=== PATIENT | female | born 1965 | race Hispanic/Latino ===

== ENCOUNTER → 2018-12-10 | Outpatient (CLI) | payer BC | END | disposition home or self-care (01) | LOC: RAH 16:17 | PROVIDERS: ATTEND Family Medicine | DX: Z12.31 Encounter for screening mammogram for malignant neoplasm of breast (principal) | CPT/HCPCS: 77067 ==

== ENCOUNTER 2020-11-10 15:20 | Inpatient (IN) | payer BC ==
[~2020-11-10] VITALS: Ht 157.5 cm; Wt 72.0 kg
[~2020-11-10 15:20] MED LIST: 0.9% NACL 50ML 50 ML IV.SOLN. IV SCH
[2020-11-10 15:21] VITALS: BP 157/95
[2020-11-10 16:05] LABS: APPEARANCE,URINE Clear (CLEAR); BILIRUBIN,URINE Negative (NEGATIVE); COLOR,URINE Yellow (YELLOW); GLUCOSE, URINE (UA) Negative (NEGATIVE); KETONES,URINE Negative (NEGATIVE); LEUKOCYTE ESTERASE ,URINE Trace (NEGATIVE); NITRATE,URINE Negative (NEGATIVE); OCCULT BLOOD,URINE Trace (NEGATIVE); PROTEIN,URINE Negative (NEGATIVE)
[2020-11-10 16:24] LABS: BACTERIA,URINE Rare /HPF (None Seen); RBC,URINE None Seen /HPF (0-1); SQUAMOUS EPITHELIAL CELL,UR 0-2 /HPF (0-2); WBC,URINE 0-1 /HPF (0-1)
[2020-11-10 16:26] LABS: BASOPHILS % (AUTO) 0.4 % (0.0-5.0); EOSINOPHILS % (AUTO) 1.4 % (0.0-8.0); HEMATOCRIT 40.4 % (36-48); LYMPHOCYTES % (AUTO) 21.8 % (21.0-51.0); MEAN CORPUSCULAR HEMOGLOBIN 32.2 pg (27.0-33.0); MEAN CORPUSCULAR HGB CONC 33.7 g/dL (32.0-36.0); MEAN CORPUSCULAR VOLUME 95.7 fL (79-99); MONOCYTES % (AUTO) 7.4 % (3.0-13.0); NEUTROPHILS % (AUTO) 68.6 % (40.0-77.0); PLATELET COUNT (AUTO) 185 K/uL (130-400); RED BLOOD CELL COUNT(AUTO) 4.22 MIL/uL (4.00-5.50); RED CELL DISTRIBUTION WIDTH 12.8 % (11.0-15.5); WHITE BLOOD COUNT (AUTO) 7.2 K/uL (4.8-10.8)
[2020-11-10] MEDS ORDERED: NACL 0.9% 1000ML 1,000 ML IV ONE (16:30)
[2020-11-10] MEDS ORDERED: KETOROLAC 15MG/ML VIAL (15MG/ML) IV ONE (16:30)
[2020-11-10 16:37] LABS: CREATININE 0.8 mg/dL (0.5-1.5); POTASSIUM 3.3 mmol/L (3.5-5.1)
[2020-11-10 16:41] LABS: ALBUMIN 3.3 g/dL (3.5-5.0); BILIRUBIN,TOTAL 3.3 mg/dL (0.2-1.0); TOTAL PROTEIN, SERUM 7.9 g/dL (6.0-8.3)
[2020-11-10 17:57] VITALS: BP 135/74
[2020-11-10] MEDS ORDERED: 0.9% NACL 50ML 50 ML IV.SOLN. IV ONE (21:15)
[2020-11-10] MEDS ORDERED: PIP/TAZ ZOSYN 3.375G 3.375 GM VIAL IVPB ONE (21:15)
[2020-11-10] MEDS ORDERED: ZOSYN 3.375GM+NS 50ML 50 ML IV ONE (21:44)
[2020-11-10] MEDS ORDERED: 0.9% NACL 50ML 50 ML IV ONE (21:45)
[2020-11-10] MEDS ORDERED: METRONIDAZOLE 500MG/100ML BAG 100 ML IVPB SCH (22:00)
[2020-11-10] MEDS ORDERED: ACET-66 PO (22:12)
[2020-11-10] MEDS ORDERED: IBUP-2070 PO (22:12)
[2020-11-10 22:17] VITALS: BP 135/79
[2020-11-10] MEDS ORDERED: PIP/TAZ ZOSYN 3.375G 3.375 GM VIAL IVPB SCH (23:00)
[2020-11-10] MEDS: ZOSYN 3.375GM+NS 50ML 50 ML IV SCH (23:15)
[2020-11-10 23:22] LABS: CREATININE 0.7 mg/dL (0.5-1.5); POTASSIUM 3.7 mmol/L (3.5-5.1)
[2020-11-10 23:26] LABS: BILIRUBIN,TOTAL 2.7 mg/dL (0.2-1.0); TOTAL PROTEIN, SERUM 7.2 g/dL (6.0-8.3)
[2020-11-11] VITALS (9 sets, daily range): BP systolic 122–164; BP diastolic 72–89
[2020-11-11] MEDS: NACL 0.9% 1000ML 1,000 ML IV SCH ×3 (00:43→19:51)
[2020-11-11] MEDS ORDERED: METRONIDAZOLE 500MG/100ML BAG 100 ML IVPB SCH (01:45)
[2020-11-11 06:40] LABS: BASOPHILS % (AUTO) 0.5 % (0.0-5.0); EOSINOPHILS % (AUTO) 3.1 % (0.0-8.0); HEMATOCRIT 37.6 % (36-48); MEAN CORPUSCULAR HEMOGLOBIN 31.4 pg (27.0-33.0); MEAN CORPUSCULAR HGB CONC 33.5 g/dL (32.0-36.0); MEAN CORPUSCULAR VOLUME 93.8 fL (79-99); MONOCYTES % (AUTO) 7.9 % (3.0-13.0); NEUTROPHILS % (AUTO) 65.2 % (40.0-77.0); PLATELET COUNT (AUTO) 183 K/uL (130-400); RED BLOOD CELL COUNT(AUTO) 4.01 MIL/uL (4.00-5.50); RED CELL DISTRIBUTION WIDTH 12.7 % (11.0-15.5); WHITE BLOOD COUNT (AUTO) 5.8 K/uL (4.8-10.8)
[2020-11-11 07:01] LABS: ALBUMIN 2.9 g/dL (3.5-5.0); BILIRUBIN,TOTAL 2.2 mg/dL (0.2-1.0); CREATININE 0.7 mg/dL (0.5-1.5); POTASSIUM 3.4 mmol/L (3.5-5.1)
[2020-11-11] MEDS: ZOSYN 3.375GM+NS 50ML 50 ML IV SCH ×2 (07:13→15:34)
[2020-11-11] MEDS ORDERED: MORPHINE 4 MG SYG IVP PRN (08:15)
[2020-11-11 08:50] LABS: BILIRUBIN,DIRECT 0.7 mg/dL (0.0-0.3); BILIRUBIN,TOTAL 2.2 mg/dL (0.2-1.0)
[2020-11-11] MEDS ORDERED: KETOROLAC 30MG VIAL (30MG/ML) IV PRN (15:15)
[2020-11-11] MEDS: ONDANSETRON 4MG INJ IVP PRN (20:49)
[2020-11-12] MEDS: ZOSYN 3.375GM+NS 50ML 50 ML IV SCH ×4 (00:39→23:50)
[2020-11-12] MEDS: TRAMADOL HCL 50 MG TABLET PO PRN (03:51)
[2020-11-12 03:57] VITALS: BP 128/68
[2020-11-12 05:08] LABS: BASOPHILS % (AUTO) 0.8 % (0.0-5.0); EOSINOPHILS % (AUTO) 3.6 % (0.0-8.0); HEMATOCRIT 35.3 % (36-48); LYMPHOCYTES % (AUTO) 28.8 % (21.0-51.0); MEAN CORPUSCULAR HEMOGLOBIN 32.4 pg (27.0-33.0); MEAN CORPUSCULAR HGB CONC 34.3 g/dL (32.0-36.0); MEAN CORPUSCULAR VOLUME 94.6 fL (79-99); MONOCYTES % (AUTO) 8.8 % (3.0-13.0); NEUTROPHILS % (AUTO) 57.8 % (40.0-77.0); PLATELET COUNT (AUTO) 199 K/uL (130-400); RED BLOOD CELL COUNT(AUTO) 3.73 MIL/uL (4.00-5.50); RED CELL DISTRIBUTION WIDTH 12.5 % (11.0-15.5); WHITE BLOOD COUNT (AUTO) 4.8 K/uL (4.8-10.8)
[2020-11-12 05:24] LABS: ALBUMIN 2.8 g/dL (3.5-5.0); BILIRUBIN,TOTAL 1.3 mg/dL (0.2-1.0); CREATININE 0.7 mg/dL (0.5-1.5); POTASSIUM 3.1 mmol/L (3.5-5.1); TOTAL PROTEIN, SERUM 6.9 g/dL (6.0-8.3)
[2020-11-12] MEDS: NACL 0.9% 1000ML 1,000 ML IV SCH (06:21)
[2020-11-12 07:09] VITALS: BP 125/72
[2020-11-12] MEDS: ONDANSETRON 4MG INJ IVP PRN (10:15)
[2020-11-12 10:58] VITALS: BP 132/72
[2020-11-12] MEDS ORDERED: LIDOCAINE HCL-MPF 1% 2ML VIAL IV PRN (11:30)
[2020-11-12] MEDS ORDERED: POTASSIUM CHLORIDE 10% ELIXIR 20 MEQ/15 ML UDCUP PO PRN (11:30)
[2020-11-12] MEDS ORDERED: POTASSIUM CHLORIDE 20MEQ/100ML 100 ML IV PRN (11:30)
[2020-11-12] MEDS ORDERED: FAMOTIDINE 20MG TAB ONE (12:03)
[2020-11-12 16:01] LABS: BILIRUBIN,DIRECT 0.3 mg/dL (0.0-0.3); BILIRUBIN,TOTAL 0.9 mg/dL (0.2-1.0); TOTAL PROTEIN, SERUM 7.4 g/dL (6.0-8.3)
[2020-11-12 16:02] VITALS: BP 150/83
[2020-11-12 20:00] VITALS: BP 160/75
[2020-11-13] VITALS: BP 158/73
[2020-11-13 03:56] VITALS: BP 145/76
[2020-11-13] MEDS: NACL 0.9% 1000ML 1,000 ML IV SCH ×2 (04:20→17:49)
[2020-11-13 04:53] LABS: HEMATOCRIT 36.3 % (36-48); MEAN CORPUSCULAR HEMOGLOBIN 31.3 pg (27.0-33.0); MEAN CORPUSCULAR HGB CONC 34.2 g/dL (32.0-36.0); MEAN CORPUSCULAR VOLUME 91.7 fL (79-99); PLATELET COUNT (AUTO) 249 K/uL (130-400); RED BLOOD CELL COUNT(AUTO) 3.96 MIL/uL (4.00-5.50); RED CELL DISTRIBUTION WIDTH 12.4 % (11.0-15.5); WHITE BLOOD COUNT (AUTO) 5.1 K/uL (4.8-10.8)
[2020-11-13 06:03] LABS: BAND NEUTROPHILS % (MANUAL) 1 % (0-2); BASOPHILS % (MANUAL) 1 % (0-2); EOSINOPHILS % (MANUAL) 3 % (1-6); LYMPHOCYTES % (MANUAL) 27 % (22-44); MAN.DIFF COMMENT-IMPRESSION MANUAL DIFFERENTIAL; MONOCYTES % (MANUAL) 5 % (2-9); PLATELET MORPHOLOGY COMMENT ADEQUATE; REACTIVE LYMPHOCYTES 3 % (0-0); SEGMENTED NEUTROPHILS % 60 % (40-70)
[2020-11-13] MEDS: ZOSYN 3.375GM+NS 50ML 50 ML IV SCH ×3 (06:42→23:34)
[2020-11-13 07:08] VITALS: BP 138/74
[2020-11-13] MEDS: FAMOTIDINE 20MG TAB PO SCH (07:44)
[2020-11-13] MEDS: KCL 20 MEQ ERTAB PO PRN ×2 (10:43→13:02)
[2020-11-13 11:04] VITALS: BP 149/82
[2020-11-13 11:08] LABS: ALBUMIN 2.9 g/dL (3.5-5.0); BILIRUBIN,DIRECT 0.2 mg/dL (0.0-0.3); BILIRUBIN,TOTAL 0.7 mg/dL (0.2-1.0); TOTAL PROTEIN, SERUM 6.8 g/dL (6.0-8.3)
[2020-11-13 15:26] VITALS: BP 150/71
[2020-11-13 19:57] VITALS: BP 149/78
[2020-11-13] MEDS: TRAMADOL HCL 50 MG TABLET PO PRN (21:11)
[2020-11-14 00:06] VITALS: BP 152/78
[2020-11-14 04:00] VITALS: BP 150/79
[2020-11-14] MEDS: NACL 0.9% 1000ML 1,000 ML IV SCH (06:36)
[2020-11-14] MEDS: ZOSYN 3.375GM+NS 50ML 50 ML IV SCH (06:38)
[2020-11-14 07:10] VITALS: BP 143/78
[2020-11-14] MEDS: FAMOTIDINE 20MG TAB PO SCH (08:35)
[2020-11-14 10:46] VITALS: BP 141/94
== END 2020-11-14 11:30 | disposition home or self-care (01) | DRG 392 ==
LOC: EDH 15:20 → EDHIP 22:00 → 3AH 11-11 08:22
PROVIDERS: ADMIT Internal Medicine; ATTEND Internal Medicine
DX: K57.20 Diverticulitis of large intestine with perforation and abscess without bleeding (principal); R17 Unspecified jaundice; K82.4 Cholesterolosis of gallbladder; E86.0 Dehydration; I10 Essential (primary) hypertension; Z90.710 Acquired absence of both cervix and uterus
CPT/HCPCS: 36415; 74176; 76705; 80053; 80076; 81001; 82150; 82247; 82248; 83690; 84132; 84484; 85025; G0378; J1885; J2270; J2405; J2543; J3480; J3490; J7030

== ENCOUNTER → 2021-04-10 | Outpatient (CLI) | payer BC ==
[~2021-04-10] MED LIST changes: -0.9% NACL 50ML 50 ML IV.SOLN. IV SCH; +ACET-66 PO; +IBUP-2070 PO
== END | disposition home or self-care (01) ==
LOC: RAH 14:11
PROVIDERS: ATTEND Family Medicine
DX: Z12.31 Encounter for screening mammogram for malignant neoplasm of breast (principal)
CPT/HCPCS: 77067

== ENCOUNTER → 2022-06-20 | Outpatient (CLI) | payer BC | END | disposition home or self-care (01) | LOC: RAH 07:51 | PROVIDERS: ATTEND Internal Medicine | DX: R93.2 Abnormal findings on diagnostic imaging of liver and biliary tract (principal) | CPT/HCPCS: 76700 ==

== ENCOUNTER → 2022-08-17 | Outpatient (CLI) | payer BC | END | disposition home or self-care (01) | LOC: RAH 13:04 | PROVIDERS: ATTEND Internal Medicine Medical Oncology | DX: I82.611 Acute embolism and thrombosis of superficial veins of right upper extremity (principal); R22.31 Localized swelling, mass and lump, right upper limb; C50.511 Malignant neoplasm of lower-outer quadrant of right female breast | CPT/HCPCS: 93971 ==

== ENCOUNTER → 2022-08-20 | Outpatient (CLI) | payer BC | END | disposition home or self-care (01) | LOC: RAH 10:44 | PROVIDERS: ATTEND Internal Medicine Medical Oncology | DX: C50.511 Malignant neoplasm of lower-outer quadrant of right female breast (principal); R22.43 Localized swelling, mass and lump, lower limb, bilateral | CPT/HCPCS: 93971 ==

== ENCOUNTER → 2022-12-17 | Outpatient (CLI) | payer BC | END | disposition home or self-care (01) | LOC: RAH 11:16 | PROVIDERS: ATTEND Internal Medicine Medical Oncology | DX: C50.511 Malignant neoplasm of lower-outer quadrant of right female breast (principal) | CPT/HCPCS: 77062 ==